=== PATIENT | male | born 1960 | race Caucasian/White ===

== ENCOUNTER 2021-06-17 11:25 | Emergency (ER) | payer BC, OTHER ==
[2021-06-17 13:01] LABS: Urine Blood 3+ (Negative); Urine Glucose Trace (Negative); Urine Protein 2+ (Negative); Urine Specific Gravity 1.025 (1.005-1.030); Urine pH 6.5 (5.0-7.0)
[2021-06-17 13:24] LABS: Absolute Lymphocytes (CBC) 1.7 K/uL (0.7-4.9); Basophils % 0.2 % (0-1.3); Hematocrit 45.9 % (39.6-49.0); Lymphocytes % 7.8 % (15.3-44.8); MPV 7.3 fL (7.6-11.3); RBC Red Blood Cell Count 4.87 M/uL (4.33-5.43)
--- NOTE | 2021-06-17 13:32 | RAD REPORT ---
EXAM DESCRIPTION: CTStone Protocol - 06/17/2021 1:20 pm CLINICAL HISTORY: flank pain, difficulty urinating COMPARISON: No comparisonsNo comparisons TECHNIQUE: CT of the abdomen and pelvis was performed. All CT scans are performed using dose optimization technique as appropriate and may include automated exposure control or mA/KV adjustment according to patient size. FINDINGS: Lower chest: Coronary artery calcifications. Mild circumferential thickened distal esophag us. Liver: Hepatic steatosis. Biliary: No biliary ductal dilatation. Stomach: No significant focal abnormality. Duodenum: No significant focal abnormality. Pancreas: No significant abnormality. Spleen: No significant abnormality. Adrenal: No suspicious lesions. Kidney/ureter: No hydronephrosis. Too small to characterize and/or benign appearing renal lesions are noted. No ureteral calculi identified. Retroperitoneum: No retroperitoneal adenopathy. Vascular: No aneurysm. Bowel: No significant focal abnormality. Normal appendix. Peritoneum: No ascites or free air. Small fat containing inguinal hernias. Bladder: Circumferential bladder wall thickening which may be secondary to chronic bladder outlet obs truction. Reproductive: Prostatomegaly. The prostate measures 6 cm in transverse dimension. Bones: No acute fracture. Remote appearing L3 compression fracture. Other: n/a IMPRESSION: No acute intra-abdominal or pelvic finding. Specifically, no urinary tract calculi ident ified. Prostatomegaly with bladder wall thickening that may reflect chronic bladder outlet obstructio n.
[2021-06-17 13:37] LABS: Potassium 3.9 mmol/L (3.5-5.1)
[2021-06-17 13:56] LABS: Urine Bacteria >50 /HPF (NONE SEEN); Urine RBC LOADED /HPF (NONE SEEN)
--- NOTE | 2021-06-17 14:33 | EDPHYS ---
Physician Documentation [facility] Name: Gregory Wayne Age: 61 yrs Sex: Male : 1960 Arrival Date: 06/17/2021 Time: 11:32 Bed 23 Private MD: ED Physician Thai Pabon HPI: 06/17 13:21 This 61 yrs old Male presents to ER via Ambulatory with complaints of Urinary kb Problem, Chills. 13:21 The patient presents with urinary symptoms, dribbling of urine, dysuria, urinary kb frequency. Onset: The symptoms/episode began/occurred 3 day(s) ago. Modifying factors: The symptoms are alleviated by nothing, the symptoms are aggravated by nothing. Associated signs and symptoms: Pertinent positives: fever, Pertinent negatives: abdominal pain, constipation, diarrhea, dysuria, hematuria, nausea, vomiting. Severity of symptoms: At their worst the symptoms were moderate, in the emergency department the symptoms are unchanged. The patient has not experienced similar symptoms in the past. The patient has not recently seen a physician. Pt reports burning with urination, dribbling, frequency, subjective fever and back pain that started on Thursday. . Historical: - Allergies: 12:11 No Known Allergies; vg1 - Home Meds: 12:11 Aspirin Oral [Active]; Metformin Oral [Active]; atorvastatin oral [Active]; vg1 - PMHx: 12:11 Hypertension; Diabetes mellitus; vg1 - PSHx: 12:11 Spinal; vg1 - Immunization history:: Adult Immunizations up to date, Client reports receiving the 2nd dose of the Covid vaccine. - Social history:: Smoking status: Patient reports the use of cigarette tobacco products, smokes one pack cigarettes per day. ROS: 13:17 Respiratory: Negative for shortness of breath, cough, wheezing, and pleuritic chest kb pain. 13:17 Constitutional: Positive for fever. 13:17 Back: Positive for of the left low back, left mid back and right low back. 13:17 : Positive for urinary symptoms, urinary frequency, small amounts, burning with urination. 13:17 All other systems are negative. Exam: 13:17 Constitutional: This is a well developed, well nourished patient who is awake, alert, kb and in no acute distress. Head/Face: Normocephalic, atraumatic. ENT: Moist Mucous membranes Cardiovascular: Regular rate and rhythm with a normal S1 and S2. No gallops, murmurs, or rubs. No pulse deficits. Respiratory: Respirations even and unlabored. No increased work of breathing, no retractions or nasal flaring. Abdomen/GI: Soft, non-tender. No distention Skin: Warm, dry with normal turgor. Normal color. MS/ Extremity: Pulses equal, no cyanosis. Neurovascular intact. Full, normal range of motion. Neuro: Awake and alert, GCS 15, oriented to person, place, time, and situation. Moves all extremities. Normal gait. Psych: Awake, alert, with orientation to person, place and time. Behavior, mood, and affect are within normal limits. 13:17 Back: pain, that is mild, of the left low back and right low back, ROM is normal, normal spinal alignment noted, CVA tenderness, that is mild, is noted on the left. Vital Signs: 12:08 BP 153 / 90; Pulse 106; Resp 18; Temp 98.6(O); Pulse Ox 100% ; Weight 92.99 kg; Height vg1 5 ft. 10 in. (177.80 cm); Pain 6/10; 12:59 BP 170 / 102; Pulse 106; Resp 18; Pulse Ox 99% on R/A; Pain 8/10; ld1 14:30 BP 162 / 98; Pulse 99; Resp 18; Pulse Ox 99% on R/A; ld1 12:08 Body Mass Index 29.41 (92.99 kg, 177.80 cm) vg1 MDM: 12:54 Patient medically screened. kb 13:20 Data reviewed: vital signs, nurses notes. Data interpreted: Pulse oximetry: on room air kb is 99 %. Interpretation: normal. 14:32 Counseling: I had a detailed discussion with the patient and/or guardian regarding: the kb historical points, exam findings, and any diagnostic results supporting the discharge/admit diagnosis, lab results, radiology results, the need for outpatient follow up, a family practitioner, to return to the emergency department if symptoms worsen or persist or if there are any questions or concerns that arise at home. 06/17 12:12 Order name: Urine Microscopic Only; Complete Time: 14:03 kb 06/17 12:58 Order name: Basic Metabolic Panel; Complete Time: 13:38 kb 06/17 12:58 Order name: CBC with Diff kb 06/17 13:01 Order name: Urine Dipstick-Ancillary; Complete Time: 13:02 EDMS 06/17 13:02 Order name: CT Stone Protocol; Complete Time: 13:36 kb 06/17 13:59 Order name: Urine Culture EDMS 06/17 12:12 Order name: Urine Dipstick-Ancillary (obtain specimen); Complete Time: 13:01 kb 06/17 12:58 Order name: IV Saline Lock; Complete Time: 13:29 kb 06/17 12:58 Order name: Labs collected and sent; Complete Time: 13:13 kb Administered Medications: 13:44 Drug: Rocephin (cefTRIAXone) 1 grams Route: IV; Rate: calculated rate; Site: right ld1 antecubital; Disposition: 06/18 11:33 Co-signature as Attending Physician, Thai Pabon MD I agree with the assessment and anuj plan of care. Disposition Summary: 06/17/21 14:33 Discharge Ordered Location: Home kb Condition: Stable kb Diagnosis - UTI/ Urinary tract infection, site not specified kb Followup: kb - With: Emergency Department - When: As needed - Reason: Worsening of condition Followup: kb - With: Private Physician - When: 2 - 3 days - Reason: Recheck today's complaints, Continuance of care, Re-evaluation by your physician Discharge Instructions: - Discharge Summary Sheet kb - Urinary Tract Infection, Adult, [id number] kb Forms: - Medication Reconciliation Form kb - Thank You Letter kb - Antibiotic Education kb - Prescription Opioid Use kb Prescriptions: - Cipro 500 mg Oral Tablet - take 1 tablet by ORAL route every 12 hours for 10 days; 20 tablet; Refills: 0, kb Product Selection Permitted Signatures: Dispatcher [employer] EDMS Cinthia De La Paz, Thai Tang MD MD cha Garcia, Victoria, RN RN vg1 Kelley Hernandez RN RN ld1
--- NOTE | 2021-06-17 14:33 | ER ---
Nurse's Notes [facility] Name: Gregory Wayne Age: 61 yrs Sex: Male : 1960 Arrival Date: 06/17/2021 Time: 11:32 Bed 23 Private MD: Diagnosis: UTI/ Urinary tract infection, site not specified Presentation: 06/17 12:08 Chief complaint: Patient states: Fever, chills, burn upon urination began on Thursday vg1 06/15/21. States 'slight nausea'. Denies blood in urine, but states urgency and is unable able to keep full flow of urine. States Right flank pain that radiates to ABD. Coronavirus screen: Vaccine status: Patient reports receiving the 2nd dose of the covid vaccine. Client denies travel out of the [place] in the last 14 days. Ebola Screen: Patient negative for fever greater than or equal to 101.5 degrees Fahrenheit, and additional compatible Ebola Virus Disease symptoms. Initial Sepsis Screen: Does the patient meet any 2 criteria? HR > 90 bpm. Does the patient have a suspected source of infection? No. Patient's initial sepsis screen is negative. Risk Assessment: Do you want to hurt yourself or someone else? Patient reports no desire to harm self or others. Onset of symptoms was June 15, 2021. 12:08 Method Of Arrival: Ambulatory vg1 12:08 Acuity: YAZ 3 vg1 Triage Assessment: 12:11 General: Appears in no apparent distress. uncomfortable, Behavior is calm, cooperative. vg1 Pain: Complains of pain in back and abdomen. Historical: - Allergies: 12:11 No Known Allergies; vg1 - Home Meds: 12:11 Aspirin Oral [Active]; Metformin Oral [Active]; atorvastatin oral [Active]; vg1 - PMHx: 12:11 Hypertension; Diabetes mellitus; vg1 - PSHx: 12:11 Spinal; vg1 - Immunization history:: Adult Immunizations up to date, Client reports receiving the 2nd dose of the Covid vaccine. - Social history:: Smoking status: Patient reports the use of cigarette tobacco products, smokes one pack cigarettes per day. Screenin:59 Abuse screen: Denies threats or abuse. Denies injuries from another. Nutritional ld1 screening: No deficits noted. Tuberculosis screening: No symptoms or risk factors identified. Fall Risk None identified. Assessment: 12:59 General: Appears in no apparent distress. uncomfortable, Behavior is calm, cooperative, ld1 appropriate for age. Pain: Complains of pain in right low back Pain does not radiate. Pain currently is 8 out of 10 on a pain scale. Quality of pain is described as throbbing, Pain began 2-3 days ago. Is continuous. Neuro: Level of Consciousness is awake, alert, obeys commands, Oriented to person, place, time, situation. Cardiovascular: Capillary refill < 3 seconds Patient's skin is warm and dry. Respiratory: Airway is patent Respiratory effort is even, unlabored, Respiratory pattern is regular, symmetrical. GI: Abdomen is round non-distended. : Reports burning with urination, urgency, urinary frequency. EENT: No signs and/or symptoms were reported regarding the EENT system. Derm: No signs and/or symptoms reported regarding the dermatologic system. Musculoskeletal: No signs and/or symptoms reported regarding the musculoskeletal system. Vital Signs: 12:08 BP 153 / 90; Pulse 106; Resp 18; Temp 98.6(O); Pulse Ox 100% ; Weight 92.99 kg; Height vg1 5 ft. 10 in. (177.80 cm); Pain 6/10; 12:59 BP 170 / 102; Pulse 106; Resp 18; Pulse Ox 99% on R/A; Pain 8/10; ld1 14:30 BP 162 / 98; Pulse 99; Resp 18; Pulse Ox 99% on R/A; ld1 12:08 Body Mass Index 29.41 (92.99 kg, 177.80 cm) vg1 ED Course: 11:32 Patient arrived in ED. mr 12:11 Triage completed. vg1 12:11 Arm band placed on. vg1 12:12 Cinthia De La Paz FNP-C is [facility]. kb 12:12 Thai Pabon MD is Attending Physician. kb 12:59 Patient has correct armband on for positive identification. Bed in low position. Call ld1 light in reach. Side rails up X2. Pulse ox on. NIBP on. Door closed. Noise minimized. Warm blanket given. 12:59 No provider procedures requiring assistance completed. 1 13:01 Urine Microscopic Only Sent. 5 13:01 Urine collected: clean catch specimen, ney colored. mh5 13:20 CT Stone Protocol In Process Unspecified. EDMS 13:29 Kelley Hernandez, RN is Primary Nurse. ld1 13:29 Inserted saline lock: 20 gauge in right antecubital area, using aseptic technique. ld1 Blood collected. 14:52 IV discontinued, intact, bleeding controlled, No redness/swelling at site. ld1 Administered Medications: 13:44 Drug: Rocephin (cefTRIAXone) 1 grams Route: IV; Rate: calculated rate; Site: right ld1 antecubital; Outcome: 14:33 Discharge ordered by . larry 14:51 Discharged to home ld1 14:51 Condition: stable 14:51 Discharge instructions given to patient, Instructed on discharge instructions, follow up and referral plans. medication usage, Demonstrated understanding of instructions, follow-up care, medications, Prescriptions given X 1. 14:52 Patient left the ED. ld1 Addendum: 06/20/2021 09:58 Addendum: Culture Results: Positive urine culture. No further action required. Bacteria i w sensitive to prescribed antibiotic. Signatures: Dispatcher [employer] EDLA Cinthia De La Paz, COOLING PIPE INSPECTOR-C COOLING PIPE INSPECTOR-Ckb Rachael Brandon Kendra Tinoco, RN Norma Mej[facility] Letha Higgins, RN RN 1 Kelley Hernandez, RN RN ld1
[2021-06-17] MEDS ORDERED: CEFTRIAXONE 1000 MG/VIAL ONE (14:40)
[2021-06-17 15:20] VITALS: TEMP 98.6
[2021-06-17 15:22] VITALS: O2SAT 99
[2021-06-17 15:23] VITALS: BP 162/98
[2021-06-17 15:56] LABS: Platelet Estimate ADEQ; White Blood Cell Scan OK (OK)
[2021-06-17 15:57] LABS: Anisocytosis 1+; Blood Morphology Comment NOTED (NOT SEEN); Poikilocytosis 1+
== END 2021-06-17 14:52 | disposition home or self-care (01) ==
LOC: ER 11:25
DX: N39.0 Urinary tract infection, site not specified (principal); I10 Essential (primary) hypertension; E11.9 Type 2 diabetes mellitus without complications; F17.210 Nicotine dependence, cigarettes, uncomplicated; Z79.82 Long term (current) use of aspirin
CPT/HCPCS: 36415; 74176; 76377; 80048; 81003; 81015; 85025; 87077; 87086; 87088; 87186; 96374; 99284

== ENCOUNTER 2024-04-06 17:53 | Emergency (ER) | payer OTHER ==
[2024-04-06] MEDS ORDERED: NA CHLORIDE 0.9% 1,000 ML ONE (18:02)
[2024-04-06 18:08] LABS: Absolute Basophils 0.1 K/uL (0-0.5); Absolute Eosinophils 0.2 K/uL (0-0.5); Absolute Lymphocytes (CBC) 1.6 K/uL (0.7-4.9); Basophils % 0.6 % (0-1.3); Hematocrit 37.3 % (39.6-49.0); Hemoglobin 12.9 g/dL (13.6-17.9); Lymphocytes % 16.2 % (15.3-44.8); MCHC 34.5 g/dL (32.0-36.0); MCV 92.8 fL (80-100); MPV 7.1 fL (7.6-11.3); Monocytes % 10.4 % (3.3-12.3); Neutrophils % 70.8 % (41.7-73.7); Platelets 486 thou/uL (152-406); RBC Red Blood Cell Count 4.02 M/uL (4.33-5.43); Red Cell Distribution Width 13.5 % (12.1-15.2)
[2024-04-06 18:26] LABS: Anion Gap 13.1 mEq/L (5.0-15.0); Potassium 3.1 mEq/L (3.5-5.1); Troponin High Sensitivity 4.7 pg/mL (<58.9)
--- NOTE | 2024-04-06 18:41 | EDPHYS ---
Physician Documentation [facility] Name: Gregory Wayne Age: 63 yrs Sex: Male : 1960 Arrival Date: 04/06/2024 Time: 17:53 Bed 6 Private MD: ED Physician Austin Blakely HPI: 04/06 18:17 This 63 yrs old Male presents to ER via EMS with complaints of heat ec2 exhaustion. 18:17 Patient arrives today due to concern for heat exhaustion. Patient reports that he was ec2 out mowing the lawn and subsequently became lightheaded, felt like he was dehydrated. Patient reports that he has no nausea or vomiting, EMS reports that they started an IV and give the patient crystalloid, patient reports that he has improvement in his symptoms after the crystalloid infusion. No chest pain, difficulty breathing, no nausea or vomiting.. Historical: - Allergies: 17:59 No Known Allergies; mb9 - Home Meds: 17:59 atorvastatin Oral [Active]; mb9 - PMHx: 17:59 diabetes mellitus; Hypertension; mb9 - PSHx: 17:59 Spinal; mb9 - Immunization history:: Adult Immunizations up to date. - Infectious Disease History:: Denies. - Social history:: Smoking status: Patient reports the use of cigarette tobacco products, smokes one pack cigarettes per day. ROS: 18:17 Constitutional: as per hpi ec2 Exam: 18:17 Constitutional: GEN: NAD Head: atraumatic Eyes: EOMI Ears: External ears are ec2 normal. CV: regular rate LUNGS: no respiratory distress ABD: non-distended SKIN: no evidence of rashes MSK: no evidence of trauma Vital Signs: 17:57 BP 103 / 59; Pulse 73; Resp 18; Temp 97.5; Pulse Ox 100% ; Weight 90.72 kg; Height 5 mb9 ft. 8 in. ; Pain 0/10; 18:14 BP 102 / 56; Pulse 61; Resp 16; Pulse Ox 95% on R/A; mb9 18:50 BP 117 / 75; Pulse 63; Resp 18; Pulse Ox 96% on R/A; ld1 17:57 Body Mass Index 30.41 (90.72 kg, 172.72 cm) mb9 17:57 Pain Scale: Adult mb9 MDM: 17:57 Patient medically screened. ec2 18:17 Data reviewed: vital signs. ED course: Patient arrives today for evaluation due to ec2 concern for heat exhaustion. Examination remarkable for well-appearing nontoxic individuals otherwise in no acute distress, obtain an EKG, independently reviewed and interpreted by me, shows normal sinus rhythm, rate 61, no acute ST segment elevations, intervals nonconcerning.. 18:19 ED course: Will obtain lab work as well. Evaluating for arrhythmias, dehydration, ec2 electrolyte disturbances.. 18:40 ED course: CBC reassuring, metabolic profile shows renal dysfunction with a creatinine ec2 of 1.33, slight hyponatremia, slight hypokalemia. Troponin within normal ranges, CPK within normal ranges. On reassessment patient remains well-appearing and in no acute distress. Will discharge home. Return precautions given.. 08 17:57 Order name: CBC with Diff; Complete Time: 18:40 ec2 04/06 17:57 Order name: BMP; Complete Time: 18:40 ec2 04/06 17:57 Order name: Troponin High Sensitivity; Complete Time: 18:40 ec2 04/06 17:57 Order name: CK; Complete Time: 18:40 ec2 04/06 17:57 Order name: EKG - Nurse/Tech; Complete Time: 18:13 ec2 04/06 18:01 Order name: IV Saline Lock; Complete Time: 18:01 mb9 Administered Medications: 18:13 Drug: NS 0.9% IV 1000 ml IV at 1 bolus Per protocol; 1000 mL bolus Route: IV; Rate: 1 mb9 bolus; Site: right hand; 18:46 Follow up: Response: No adverse reaction; IV Status: Completed infusion mb9 Disposition Summary: 04/06/24 18:40 Discharge Ordered Notes: Location: Home ec2 Condition: Stable ec2 Diagnosis - Dehydration ec2 Followup: ec2 - With: Private Physician - When: - Reason: Re-evaluation by your physician Discharge Instructions: - Discharge Summary Sheet ec2 - Dehydration, Adult ec2 Forms: - Medication Reconciliation Form ec2 - Antibiotic Education ec2 - Prescription Opioid Use ec2 - Patient Portal Instructions ec2 - Leadership Thank You Letter ec2 Signatures: Dispatcher [employer] Rachael Mccall RN RN mb9 Austin Blakely MD MD ec2 Corrections: (The following items were deleted from the chart) 17:58 17:58 CBC+H.LAB.BRZ ordered. EDMS EDMS 17:58 17:58 BASIC METABOLIC PANEL+C.LAB.BRZ ordered. EDMS EDMS 17:58 17:58 Troponin High Sensitivity+C.LAB.BRZ ordered. EDMS EDMS 17:58 17:58 CREATINE PHOSPHOKINASE+C.LAB.BRZ ordered. EDMS EDMS
--- NOTE | 2024-04-06 18:41 | ER ---
Nurse's Notes [facility] Name: Gregory Wayne Age: 63 yrs Sex: Male : 1960 Arrival Date: 04/06/2024 Time: 17:53 Bed 6 Private MD: Diagnosis: Dehydration Presentation: 04/06 17:57 Chief complaint: EMS states: "toned out for feeling weak and diaphoretic while mowing mb9 grass outside. Pt denies CP/SOB. 20 g right hand and gave 1 liter of NS.". Coronavirus screen: Vaccine status: Patient reports receiving the 2nd dose of the covid vaccine. Ebola Screen: No symptoms or risks identified at this time. Initial Sepsis Screen: Does the patient meet any 2 criteria? No. Patient's initial sepsis screen is negative. Does the patient have a suspected source of infection? No. Patient's initial sepsis screen is negative. Risk Assessment: Do you want to hurt yourself or someone else? Patient reports no desire to harm self or others. Onset of symptoms was April 06, 2024. 17:57 Method Of Arrival: EMS: [facility] 17:57 Acuity: YAZ 3 mb9 Triage Assessment: 18:00 General: Appears in no apparent distress. Behavior is cooperative. Pain: Denies pain. mb9 EENT: No signs and/or symptoms were reported regarding the EENT system. Neuro: Reports weakness in entire body. Cardiovascular: Heart tones S1 S2 present Patient's skin is warm and dry. Respiratory: Airway is patent Respiratory effort is even, unlabored, Respiratory pattern is regular, symmetrical, Breath sounds are clear bilaterally. GI: Abdomen is flat, non-distended, Bowel sounds present X 4 quads. Abd is soft and non tender X 4 quads. : No signs and/or symptoms were reported regarding the genitourinary system. Derm: Skin is intact, Skin is diaphoretic, Skin is normal, Skin temperature is cool. Musculoskeletal: Range of motion: intact in all extremities. Historical: - Allergies: 17:59 No Known Allergies; mb9 - Home Meds: 17:59 atorvastatin Oral [Active]; mb9 - PMHx: 17:59 diabetes mellitus; Hypertension; mb9 - PSHx: 17:59 Spinal; mb9 - Immunization history:: Adult Immunizations up to date. - Infectious Disease History:: Denies. - Social history:: Smoking status: Patient reports the use of cigarette tobacco products, smokes one pack cigarettes per day. Screenin:14 [facility] ED Fall Risk Assessment (Adult) History of falling in the last 3 months, mb9 including since admission No falls in past 3 months (0 pts) Confusion or Disorientation No (0 pts) Intoxicated or Sedated No (0 pts) Impaired Gait No (0 pts) Mobility Assist Device Used No (0 pt) Altered Elimination No (0 pt) Score/Fall Risk Level 0 - 2 = Low Risk Oriented to surroundings, Maintained a safe environment, Educated pt \\T\\ family on fall prevention, incl call for assistance when getting out of bed. Abuse screen: Denies threats or abuse. Nutritional screening: No deficits noted. Tuberculosis screening: No symptoms or risk factors identified. Assessment: 18:14 Reassessment: see triage assessment. mb9 18:50 Reassessment: Patient appears in no apparent distress at this time. No changes from ld1 previously documented assessment. Patient and/or family updated on plan of care and expected duration. Pain level reassessed. Patient is alert, oriented x 3, equal unlabored respirations, skin warm/dry/pink. Vital Signs: 17:57 BP 103 / 59; Pulse 73; Resp 18; Temp 97.5; Pulse Ox 100% ; Weight 90.72 kg; Height 5 mb9 ft. 8 in. ; Pain 0/10; 18:14 BP 102 / 56; Pulse 61; Resp 16; Pulse Ox 95% on R/A; mb9 18:50 BP 117 / 75; Pulse 63; Resp 18; Pulse Ox 96% on R/A; ld1 17:57 Body Mass Index 30.41 (90.72 kg, 172.72 cm) mb9 17:57 Pain Scale: Adult mb9 ED Course: 17:56 Patient arrived in ED. ld1 17:57 Rachael Palacios RN is Primary Nurse. mb9 17:57 Austin Blakely MD is Attending Physician. ec2 17:57 Arm band placed on. mb9 17:59 Triage completed. mb9 18:01 Initial lab(s) drawn, by nv, sent to lab. Inserted saline lock: 20 gauge in right hand, mb9 using aseptic technique. Blood collected. Flushed with 10 mL NS. 18:13 BMP Sent. mb9 18:14 EKG done, by ED staff, reviewed by Austin Blakely MD. mb9 18:15 Bed in low position. Call light in reach. Side rails up X 1. Provided Education on: mb9 press call light if needing anything. Client placed on continuous cardiac and pulse oximetry monitoring. NIBP monitoring applied. groundwater monitoring technician on. Door closed. Noise minimized. Warm blanket given. Pillow given. 18:15 No provider procedures requiring assistance completed. mb9 18:46 IV discontinued, intact, bleeding controlled, No redness/swelling at site. Pressure mb9 dressing applied. Administered Medications: 18:13 Drug: NS 0.9% IV 1000 ml IV at 1 bolus Per protocol; 1000 mL bolus Route: IV; Rate: 1 mb9 bolus; Site: right hand; 18:46 Follow up: Response: No adverse reaction; IV Status: Completed infusion mb9 Medication: 18:15 VIS not applicable for this client. mb9 Outcome: 18:40 Discharge ordered by . ec2 18:46 Discharged to home ambulatory, with family, mb9 18:46 Condition: stable 18:46 Discharge instructions given to patient, family, Instructed on discharge instructions, follow up and referral plans. Demonstrated understanding of instructions, follow-up care, 18:50 Patient left the ED. ld1 Signatures: Kelley Crawford RN RN [email or web address] Rachael Palacios RN RN [email or web address] Zora, MD OMI Avila ec2
[2024-04-06 19:03] VITALS: TEMP 97.5
[2024-04-06 19:05] VITALS: BP 117/75; O2SAT 96
== END 2024-04-06 18:50 | disposition home or self-care (01) ==
LOC: ER 17:53
DX: E86.0 Dehydration (principal); E11.9 Type 2 diabetes mellitus without complications; I10 Essential (primary) hypertension; F17.210 Nicotine dependence, cigarettes, uncomplicated
CPT/HCPCS: 85025; 80048; 36415; 82550; 84484; J7030